=== PATIENT | male | born 1960 | race Two or more races ===

== ENCOUNTER 2021-10-19 06:40 | Day surgery (SDC) | payer OTHER ==
[2021-10-19] MEDS ORDERED: PERCOCET 5-3251 EACH PO (10:02)
== END 2021-10-19 13:20 | disposition home or self-care (01) ==
LOC: CIR.AMB 06:40
PROVIDERS: ATTEND Surgery
DX: K64.8 Other hemorrhoids (principal); K64.4 Residual hemorrhoidal skin tags; Z20.822 Contact with and (suspected) exposure to COVID-19